=== PATIENT | female | born 1970 | race Caucasian/White ===

== ENCOUNTER 2016-12-29 08:04 | Emergency (ER) | payer BC ==
[2016-12-29 08:27] VITALS: BP 122/63
[2016-12-29] MEDS ORDERED: Ketorolac INJ* 30 MG/ML 1 ML VIAL IM ONE (09:06)
--- NOTE | 2016-12-29 09:16 | UC ---
Back Pain HPI - HPI Summary HPI Summary: sudden right lower back pain yesterday after lifting weights. no pain or radiation down the leg. no numbness or saddle anesthesia. - History of Current Complaint Chief Complaint: UCBackPain Stated Complaint: BACK PAIN Time Seen by Provider: 12/29/16 08:48 Hx Obtained From: Patient, Family/Medical Coding Technician Hx Last Menstrual Period: 12/14/16 Onset/Duration: Sudden Onset, Lasting Hours Timing: Constant Severity Initially: Severe Severity Currently: Severe Back Pain: Is Discrete @ - right lower back upper buttocks. Character: Sharp, Aching, Spasmodic, Stiffness Aggravating: Movement, Lifting, Bending, Walking Alleviating: Rest, Position Associated Signs And Symptoms: Positive: Pain with Weight Bearing. Negative: Swelling, Bruising, Fever, Weakness, Numbness, Tingling, Flank Pain, Bladder Incontinence, Bowel Incontinence - Allergies/Home Medications Allergies/Adverse Reactions: Allergies Allergy/AdvReac Type Severity Reaction Status Date / Time No Known Allergies Allergy Verified 12/29/16 08:27 Home Medications: Home Medications Acetaminophen TAB* [Tylenol TAB*] 650 mg PO Q8H PRN 12/29/16 [History Confirmed 12/29/16] PMH/Surg Hx/FS Hx/Imm Hx Previously Healthy: No - prior shoulder injury. - Surgical History Surgical History: Yes Surgery Procedure, Year, and Place: LT VEIN STRIPPING ON LEG. LT SHOULDER SURGERY - Family History Known Family History: Positive: Other - no related back disease in the family. - Social History Occupation: Employed Full-time Alcohol Use: Occasionally Substance Use Type: None Smoking Status (MU): Never Smoked Tobacco Review of Systems Musculoskeletal: Decreased ROM, Myalgia All Other Systems Reviewed And Are Negative: Yes Physical Exam Triage Information Reviewed: Yes Appearance: Pain Distress - obvious pain with certain movements Vital Signs: Initial Vital Signs Temp 97.3 F 12/29/16 08:22 Pulse 58 12/29/16 08:22 Resp 18 12/29/16 08:22 BP 122/63 12/29/16 08:22 Vital Signs Reviewed: Yes Eyes: Positive: Conjunctiva Clear ENT: Positive: Normal ENT inspection, Hearing grossly normal. Negative: Trismus , Muffled/hoarse voice Neck: Negative: Nuchal Rigidity Respiratory Exam: Normal Cardiovascular Exam: Normal Abdominal Exam: Normal Musculoskeletal Exam: Other - there is no midline or paraspinal muscle tenderness. Neurological Exam: Normal - REflexes anya intact in both lower extremeties and pin prick intact anya. Psychological Exam: Normal Skin Exam: Normal Back Pain Course/Dx - Course Course Of Treatment: sudden pain without radiation. no signs or symptoms of cord compression. this is c/w with strain. PT note provided. flexaril at night and she was warned about sedating properties. - Differential Dx/Diagnosis Differential Diagnosis/HQI/PQRI: Arthritis, Cauda Equina Syndrome, Compressive Cord Syndrome, Epidural Abscess, Fracture, Herniated Disc, Neoplasm, Osteomyelitis, Osteoporosis, Renal Colic, Septic Arthritis, Strain, Sprain Provider Diagnoses: acute low back strain. Discharge - Discharge Plan Condition: Good Disposition: HOME Prescriptions: Cyclobenzaprine TAB* [Flexeril 10 MG TAB*] 10 mg PO BID PRN #10 tab PRN Reason: Pain Naproxen [Naprosyn 500 mg] 500 mg PO BID PRN #20 tab PRN Reason: Pain Patient Education Materials: Low Back Strain (ED), Acute Low Back Pain (ED) Referrals: Sharita Chandra MD [Primary Care Provider] - If Needed Additional Instructions: return for any worsening. PT note has been provided.
== END 2016-12-29 09:40 | disposition home or self-care (01) ==
LOC: UCCORT 08:04
DX: S39.012A Strain of muscle, fascia and tendon of lower back, initial encounter (principal); X50.0XXA Overexertion from strenuous movement or load, initial encounter; Y93.B3 Activity, free weights; Y92.9 Unspecified place or not applicable
CPT/HCPCS: 96372; 99212; G0463; J1885

== ENCOUNTER 2017-04-02 12:04 | Emergency (ER) | payer BC ==
[2017-04-02 13:51] VITALS: BP 120/70
--- NOTE | 2017-04-02 14:00 | UC ---
Throat Pain/Nasal Wes HPI - HPI Summary HPI Summary: coughing, congested for 2 weeks now. tried netipot, nyquil without relief. earaches, congested nasal and chest. has chills but no fever she knows of. - History of Current Complaint Chief Complaint: UCRespiratory Stated Complaint: SINUSES Hx Last Menstrual Period: 02/04/17- pt states nancy-menopause Onset/Duration: Lasting Weeks Severity: Severe Pain Scale Used: 0-10 Numeric - 4/10 Cough: Nonproductive Associated Signs & Symptoms: Positive: Sinus Discomfort, Nasal Discharge - Epiglottits Risk Factors Epiglottis Risk Factors: Negative - Allergies/Home Medications Allergies/Adverse Reactions: Allergies Allergy/AdvReac Type Severity Reaction Status Date / Time No Known Allergies Allergy Verified 04/02/17 13:51 PMH/Surg Hx/FS Hx/Imm Hx Previously Healthy: Yes - Surgical History Surgical History: Yes Surgery Procedure, Year, and Place: LT VEIN STRIPPING ON LEG. LT SHOULDER SURGERY - Family History Known Family History: Positive: Other - no related back disease in the family. - Social History Alcohol Use: Occasionally Substance Use Type: None Smoking Status (MU): Never Smoked Tobacco Review of Systems Constitutional: Chills Eyes: Negative ENT: Sore Throat, Ear Ache, Nasal Discharge, Sinus Congestion, Sinus Pain/ Tenderness Respiratory: Cough Cardiovascular: Negative Gastrointestinal: Negative Genitourinary: Negative Motor: Negative Neurovascular: Negative Musculoskeletal: Negative Neurological: Negative Psychological: Negative Is Patient Immunocompromised?: No All Other Systems Reviewed And Are Negative: Yes Physical Exam Triage Information Reviewed: Yes Appearance: Well-Appearing, No Pain Distress, Well-Nourished Vital Signs: Initial Vital Signs Temp 98 F 04/02/17 13:42 Pulse 70 04/02/17 13:42 Resp 16 04/02/17 13:42 BP 120/70 04/02/17 13:42 Pulse Ox 100 04/02/17 13:42 Vital Signs Reviewed: Yes Eye Exam: Normal Eyes: Positive: Conjunctiva Clear ENT: Positive: Normal ENT inspection, Pharyngeal erythema, Nasal congestion, TM bulging, Hoarse voice Neck exam: Normal Neck: Positive: Supple Respiratory: Positive: Chest non-tender, Lungs clear, Normal breath sounds, No respiratory distress Cardiovascular Exam: Normal Cardiovascular: Positive: RRR, No Murmur Abdominal Exam: Normal Abdomen Description: Positive: Nontender Musculoskeletal Exam: Normal Neurological Exam: Normal Neurological: Positive: Alert Psychological: Positive: Normal Response To Family, Age Appropriate Behavior Throat Pain/Nasal Course/Dx - Course Course Of Treatment: take antibiotic with food to reduce gi upset. increase fluid intake daily to prevent dehydration. take ibuprofen as directed every 4- 6 hours for pain/fever. f/u pcp in 1 week if symptoms not resolving - Differential Dx/Diagnosis Provider Diagnoses: sinusitis Discharge - Discharge Plan Condition: Stable Disposition: HOME Prescriptions: Amoxicillin PO (*) [Amoxicillin 875 MG (*)] 875 mg PO BID 10 Days #20 tab Patient Education Materials: Sinusitis (ED) Referrals: Sharita Chandra MD [Primary Care Provider] - 1 Week
== END 2017-04-02 14:15 | disposition home or self-care (01) ==
LOC: UCCORT 12:04
DX: J32.9 Chronic sinusitis, unspecified (principal)
CPT/HCPCS: 99212; G0463

== ENCOUNTER 2018-04-10 17:44 | Emergency (ER) | payer BC ==
[2018-04-10 18:06] VITALS: BP 133/77
--- NOTE | 2018-04-10 18:30 | ED ---
Throat Pain/Nasal Congestion - HPI Summary HPI Summary: 47 yr old female with three weeks of sinus pressure, post nasal drip, ear pressure, and now coughing a bit. She has not had fever. She has had intermittent pressure that comes and goes in the right ear. She rates her symptoms as moderate. She feels the sinus symptoms are now moving down into her chest and exacerbating cough symptoms. No SOB, no chest pain. - History of Current Complaint Chief Complaint: UCGeneralIllness Time Seen by Provider: 04/10/18 18:18 - Allergies/Home Medications Allergies/Adverse Reactions: Allergies Allergy/AdvReac Type Severity Reaction Status Date / Time No Known Allergies Allergy Verified 04/10/18 18:06 Home Medications: Home Medications Copper (Iud) [Paragard IUD] 1 unit IU DAILY 04/10/18 [History Confirmed 04/10/18 ] PMH/Surg Hx/FS Hx/Imm Hx Cardiovascular History: Denies: Hx Pacemaker/ICD Sensory History: Denies: Hx Hearing Aid Psychiatric History: Denies: Hx Panic Disorder - Surgical History Surgery Procedure, Year, and Place: LT VEIN STRIPPING ON LEG. LT SHOULDER SURGERY Infectious Disease History: No Infectious Disease History: Denies: Traveled Outside the [place] in Last 30 Days - Family History Known Family History: Positive: Other - no related back disease in the family. - Social History Occupation: Employed Full-time Alcohol Use: Occasionally Substance Use Type: Reports: None Smoking Status (MU): Never Smoked Tobacco Review of Systems Constitutional: Negative Positive: Sore Throat, Ear Ache, Nasal Discharge Positive: Cough All Other Systems Reviewed And Are Negative: Yes Physical Exam Triage Information Reviewed: Yes Vital Signs On Initial Exam: Initial Vitals Temp Pulse Resp BP Pulse Ox 97.1 F 77 15 133/77 100 04/10/18 18:03 04/10/18 18:03 04/10/18 18:03 04/10/18 18:03 04/10/18 18:03 Vital Signs Reviewed: Yes Appearance: Positive: Well-Appearing, No Pain Distress Skin: Positive: Warm, Skin Color Reflects Adequate Perfusion Head/Face: Positive: Normal Head/Face Inspection Eyes: Positive: EOMI ENT: Positive: Pharynx normal, Nasal congestion, Nasal drainage, Sinus tenderness. Negative: TM red Neck: Positive: Nontender Respiratory/Lung Sounds: Positive: Clear to Auscultation, Breath Sounds Present Cardiovascular: Positive: RRR. Negative: Murmur Abdomen Description: Positive: Nontender Musculoskeletal: Positive: Strength/ROM Intact Neurological: Positive: Sensory/Motor Intact, Alert, Oriented to Person Place, Time, CN Intact II-III, Normal Gait, Speech Normal Psychiatric: Positive: Normal - Yolanda Coma Scale Best Eye Response: 4 - Spontaneous Best Motor Response: 6 - Obeys Commands Best Verbal Response: 5 - Oriented Coma Scale Total: 15 Diagnostics - Vital Signs Vital Signs Temp Pulse Resp BP Pulse Ox 04/10/18 18:03 97.1 F 77 15 133/77 100 - Laboratory Lab Statement: Any lab studies that have been ordered have been reviewed, and results considered in the medical decision making process. EENT Course/Dx - Course Course Of Treatment: 47 yr old female with sinusitis. Rx cefdinir. DC home. FU with pMD. - Diagnoses Provider Diagnoses: Sinusitis Discharge - Sign-Out/Discharge Documenting (check all that apply): Patient Departure All imaging exams completed and their final reports reviewed: No Studies - Discharge Plan Condition: Good Disposition: HOME Prescriptions: Cefdinir [Cefdinir 300 MG CAP] 300 mg PO BID #20 capsule Patient Education Materials: Sinusitis (ED) Referrals: Sharita Chandra MD [Primary Care Provider] - 4 Days - Billing Disposition and Condition Condition: GOOD Disposition: Home
== END 2018-04-10 18:37 | disposition home or self-care (01) ==
LOC: UCCORT 17:44
DX: J32.9 Chronic sinusitis, unspecified (principal)
CPT/HCPCS: 99212; G0463

== ENCOUNTER 2019-04-17 20:35 | Emergency (ER) | payer BC ==
--- OUTSIDE RECORDS SUMMARY | 2019-04-17 20:41 | XMS REPORT | Continuity of Care Document ---
:1970 External Reference #:[id number] Author Name Sharita Chandra MD Address [address] [place] [id number] Care Team Providers Name Role Phone Nevin Diallo Care Team Information Shipping Specialist [phone] Ana Apodaca - Gastroenterology Care Team Information Shipping Specialist Problems Active Problems Provider Date Vitamin D deficiency Sharita Chandra MD Onset: 10/05/2011 Varicose veins of lower extremity Sharita Chandra MD Onset: 10/02/2010 Raynaud's disease Sharita Chandra MD Onset: 09/02/2006 Migraine with typical aura Sharita Chandra MD Onset: 02/23/2019 Social History Type Date Description Comments Sex Unknown ETOH Use Occasionally consumes alcohol Tobacco Use Start: Unknown Patient has never smoked Recreational Drug Use Denies Drug Use Smoking Status Reviewed: 02/23/19 Patient has never smoked Exercise Type/Frequency Exercises regularly Exercises regularly cross fit, swimming, biking; 01/03/15 counselled 150min per week 10k steps per day Allergies, Adverse Reactions, Alerts Description No Known Drug Allergies Medications Active Medications SIG Qnty Indications Ordering Date Provider Paragard Intrauterine per pt inserted Z01.411 Unknown 03/02/2017 Copper Contraceptive approx 03/2017 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 T380a IUD Immunizations CPT Code Status Date Vaccine Reaction Lot # [id number] Given 01/22/2019 Influenza Vac, Quadrivalent, Split, 0.25mL, [place] Use [address]697 Given 02/03/2018 Tdap (Adacel) Ages 7 And [id number] Above Only 05326 Given 01/23/2018 Influenza Virus Vaccine,Quadrivalent,Split, Preserv Free, 0.5mL,Im [id number] Given 02/11/2015 Fluvirin Immunization 84089 Given 01/03/2014 Afluria Or Fluvirin Flu Vac Intramuscular 88671 Given 02/20/2013 Afluria Or Fluvirin Flu Vac [facility] Intramuscular 46272 Given 03/22/2012 Afluria Or Fluvirin Flu Vac Intramuscular 92440 Given 02/13/2010 Afluria Or Fluvirin Flu Vac DONE AT Intramuscular [facility]/FLUVIRIN 13094 Given 01/23/2009 Afluria Or Fluvirin Flu Vac Intramuscular 62348 Given 09/29/2007 Tdap (Adacel) Ages 7 And Above Only 82453 Given 05/02/1997 Tetanus And Diptheria Toxoid 7 Years And Older Preserv Free 89109 Given 05/02/1997 Hepatitis A Vaccine, Adult Dosage Vital Signs Date Vital Result Comment 02/23/2019 9:58am Weight 161.00 lb Heart Rate 60 /min BP Systolic 120 mmHg BP Diastolic 70 mmHg Respiratory Rate 14 /min Height 64.75 inches 5'4.75" O2 % BldC Oximetry 100 % ra BMI (Body Mass Index) 27.0 kg/m2 02/03/2018 12:06pm Weight 159.00 lb Heart Rate 64 /min BP Systolic 112 mmHg BP Diastolic 74 mmHg Respiratory Rate 14 /min Height 65 inches 5'5" O2 % BldC Oximetry 99 % Ra BMI (Body Mass Index) 26.5 kg/m2 Results Test Date Facility Test Result H/L Range Note Comprehensive Met Panel[facility] 02/16/2019 [place] Sodium 140 mmol/L 135- 146 1, 2 Potassium 4.3 mmol/L 3.5-5.2 Chloride# 103 mmol/L 97-110 3 Carbon Dioxide 29 mmol/L 24-34 Calcium 10.0 mg/dL 8.5-10.5 4 Glucose 101 mg/dL 70-105 BUN 16 mg/dL 6-26 Creatinine 1.0 mg/dL 0.5-1.4 Total Protein 7.0 g/dL 6.0-8.0 Albumin 4.6 g/dL 3.6-4.9 Globulin 2.4 g/dL 2.0-3.5 A/G Ratio 1.9 Ratio 1.0-2.2 Total Bilirubin 0.7 mg/dL 0.1-1.3 Alkaline Phosphatase 45 U/L 24-140 Alt 21 U/L 3-42 Ast 19 U/L 8-42 Anion Gap 8 mmol/L 5-15 5 Female Egfr 67 >60 6 Male Egfr 89 >60 7 Lipid 02/16/2019 [facility] Cholesterol 250 mg/dL High 50-199 Triglycerides 78 mg/dL 30-200 HDL 77 mg/dL 35-85 8 Chol/ HDL Ratio 3.3 ratio Low 3.7-5.6 VLDL 16 mg/dL 2-29 LDL (Calc) 158 mg/dL High 20-99 9 Laboratory test finding 02/16/2019 [facility] Vitamin D 25 Hydroxy 35 ng/mL 30-100 10 1 befrore visit 01/2019 2 Updated reference range on new analyzer 3 Updated reference range on new analyzer 4 Updated reference range 08-30-2018 5 Updated Reference Range 6 Concerning GFR Guidelines for Americans: Normal function or mild renal disease, if clinically at risk: >/= 60 mL/min Moderately decreased: 30-59 Severely decreased: 15-29 Renal failure: <15 There is reduced accuracy above 60ml/min/1.73 m squared, but the numeric value may be clinically useful in the near 60 range 7 Concerning GFR Guidelines: Normal function or mild renal disease, if clinically at risk: >/= 60 mL/min Moderately decreased: 30-59 Severely decreased: 15-29 Renal failure: <15 There is reduced accuracy above 60ml/min/1.73 m squared, but the numeric value may be clinically useful in the near 60 range Glomerular Filtration Rate (GFR) is estimated based on the CKD-EPI equation, which assumes a steady state for creatinine as recommended by the National Kidney Disease Education Program in conjunction with the National Institutes of Health and the National Kidney Foundation. Clinical conditions in which it may be necessary to measure GFR by using clearance methods include extremes of age and body size, severe malnutrition or obesity, diseases of skeletal muscle, paraplegia or quadriplegia, vegetarian diet, rapidly changing kidney function, and calculation of the dose of potentially toxic drugs that are excreted by the kidneys. 8 Per NCEP ATP III Guidelines: Results lower than 40 mg/dL are suggestive of increased risk for coronary artery disease. Results > or = to 60 mg/dL are considered a negative risk factor. 9 Per NCEP ATP III Guidelines: Normal Population <130 Patients with medical conditions: CHD/DM Optimal: <100 Borderline high: 130-159 High: 160-189 Very high: >189 10 Clinical Guidelines for recommended serum 25(OH)Vitamin D Deficient at less than 20 ng/mL Insufficient at 20 to <30 ng/mL Sufficient at 30-100 ng/mL Toxicity at greater than 100 ng/mL Procedures Date Code Description Status 02/13/2018 [id number] Mammogram Completed 12/30/2014 [id number] Mammogram Completed Medical Devices Description No Information Available Encounters Description No Information Available Assessments Date Code Description Provider 02/23/2019 Z01.411 Encounter for gynecological examination Sharita Chandra MD (general) (routine) with abnormal findings 02/23/2019 E78.2 Mixed hyperlipidemia Sharita Chandra MD 02/23/2019 I73.00 Raynaud's syndrome without gangrene Sharita Chandra MD 02/23/2019 E55.9 Vitamin D deficiency, unspecified Sharita Chandra MD 02/23/2019 G43.109 Migraine with aura, not intractable, without Sharita Chandra MD status migrainosus 02/23/2019 I83.813 Varicose veins of bilateral lower extremities Sharita Chandra MD with pain 02/23/2019 Z12.31 Encounter for screening mammogram for Sharita Chandra MD malignant neoplasm of breast 02/23/2019 Z12.11 Encounter for screening for malignant Sharita Chandra MD neoplasm of colon 02/23/2019 Z68.27 Body mass index (BMI) 27.0-27.9, adult Sharita Chandra MD 02/16/2019 E78.2 Mixed hyperlipidemia Sharita Chandra MD 02/16/2019 E78.2 Mixed hyperlipidemia Schedule, Laboratory 02/16/2019 E55.9 Vitamin D deficiency, unspecified Sharita Chandra MD 02/16/2019 E55.9 Vitamin D deficiency, unspecified Schedule, Laboratory 02/16/2019 E78.2 Mixed hyperlipidemia [facility] 02/16/2019 E55.9 Vitamin D deficiency, unspecified [facility] Plan of Treatment Future Appointment(s):02/22/2020 7:45 am - Schedule, Laboratory at [facility]2019 9:30 am - Sharita Chandra MD at [facility]02/23/2019 - Sharita Chandra MDZ01.411 Encounter for gynecological examination (general) (routine) with abnormal findingsComments:Annual communications instructor exam, pt is low risk for cervical cancer, pap 01/03/15 and hpv normal next in 2019 unless areason presents. Annual exam/ physical is still recommended Monitor menses flow, if occur < q 21 days or last > 7 days or has breakthrough bleeding, these changes could be signs of endometrial problems such as polyps, cancer, or other problems. Imms reviewed tdap booster 02/03/18no need for pneumovax. get a flu vax and have them send the report to [facility] annually per her request ROS normal, norisk for colon cancer identified. Healthy Lifestyle Encouraged: Encouraged healthy diet with meats simply prepared, fresh fruits and veg when able also simply prepared , whole grains, 3 dairies per day non fat. Recommend all patients consume a source of omega 3 fatty acids daily, such as almonds/walnuts/ground flax seed/ olive oil/fish like salmon,tuna. Women at risk for ( meaning, anyone sexually active regardless of contraception) should take 400mcg folic acid daily , usually found in a multivit, to reduce the risks for defects. Encouraged daily exercise 30 - 60 min daily/150min per week. Encouraged at least 2-3 qrts total fluid per day with more for sweaty exercise. Target 7-8 hours of sleep at night. Work on your "happy factors" to decrease stress and enjoy life. Limityour alcohol to under 1 per day, no more than 3 in any one day , no more than 7 per week.Avoid tobacco use. An approach to healthy lifestyle will help reduce your risks for acute and chronic illness and you may enjoy life better!IUD strings identified and appears appropriately placed based on exam. Recommended she do monthly string checks to make sure it is not displacing at all.Follow up:next visit 366 days for 30min annual communications instructor exam, pap , iudcheck, nonfasting labs and mammo 5 days wujnmD10.2 Mixed hyperlipidemiaNew Labs:Comprehensive Met Panel-[facility], Scheduled: 02/22/20Lipid, Scheduled: 02/22/20Comments:high cholreviewed AHA/ACC 2018 risk assessment and guidelines, suggests an <5% cardiovascular risk, meaning <5 out of 100 people with your risk factors will have a heart attack or stroke in the next 10 years. This is considered low risk. However, she has family history of father with CAD in 50sRecommend: Low fat ( under 30gm), low chol diet ( under 300mg per day chol)focus on lean meat, nonfat 1% dairy, increased veg and fruit, whole grains consume healthy omega-3 fats with each meal, avoidingtransfats. weight lossexercise build to 150min per week or 10,000 steps per day Since this is considered low risk, no aspirin is recommended at this time. Reviewed signs and symptoms of cardiovasculardisease.recheck periodically to monitor dietary treatment Advised pt to consider doing a CT calcium score, program through [facility], CT scan with risks for radiation exposure and chance to find another abnormality that needs a workup, but benefit of identifying calcium load that would suggest coronary artery disease and potential opportunity for early treatment. Cost is $150 usually not covered by insurance. She declines for nowI73.00 Raynaud's syndrome without gangreneNew Labs:CBC with Auto Diff- [facility], Scheduled: 02/22/20Comments:Raynaud's diseasesxs stableseek care for sxs not controlled, there are meds to help if bpbaywI28.9 Vitamin D deficiency, unspecifiedNew Labs:Vitamin D 25 Hydroxy, Scheduled: 02/22/20Comments:Pt with vit D deficiency on replacement, check levels with next labs. Continue replacement and recheck periodically. Be certain to take your vit d with your main meal that has meat/fat/oil as this is fat soluble. New recommended goals are levels 40 - 85G43.109 Migraine with aura, not intractable, without status migrainosusComments:stable headache frequency, call prn increased ccsdbugbsF02.813 Varicose veins of bilateral lower extremities with painComments :varicose veins--stable, no new concerns. continues support lcfrldwlrB15.31 Encounter for screening mammogram for malignant neoplasm of breastNew Xrays: Mammogram Screening, Bilateral Incl CAD When Performe, Ordered: 02/23/19Comments :Annual mammogram and clinical breast exam with monthly breast self exams discussed. Pt should call/come in if she has any changes in breast self exam or concerns. Advised pt that for those aged 50-74,uspstf recommends mammo every other year , and breast self exam or clinical breast exam need to be decided individually. Amer Cancer society recommends mammo every year age 45 to 55 and then every other year after, and to not do annual clinical breast exams. At risk pts should do annually or as directed by specialist recommendations. Currently I am recommending pts do what they feel they should, and that most in this risk category do an annual mammogram and clinical breast exam. If you want to treat breast cancer,, then do annual screening. Discussed the new recommendations for breast ultrasound for very dense breasts as an additional test for screening. She asks for annual mammogram and clinical breast exam Discussed the discrepancy with the Ty-Cu risk assessment at 29% but per [place] 5yr is 1.3% and lifetime is only 12%. Discussed referral to breast district manager primary care sales, options for US, MRI, more frequent clinical breast exams, etc. She declines for now.Z12.11 Encounter for screening for malignant neoplasm of colonComments:Colon cancer screening discussedRecommend colon cancer screening as it's preventive for colon cancerby removing polyps or small cancers. Recommend either colonoscopy every 10 yr, cologuard stool sample every 3 years (check insurance for coverage) or annual FIT test for blood in the stool. Colonoscopy is the gold standard The idea is to identify cancer early or to identify and remove polyps before they can grow and become cancer. Pt accepts referral for colonoscopyReferral:Ana Apodaca JdurpuyjvfioyenaJ55.27 Body mass index (BMI) 27.0-27.9, adultComments:recommend reduced calorie diet and healthy diet and regular exercise to help with weight loss Functional Status Description No Information Available Mental Status Description No Information Available Referrals Refer to Reason for Referral Status Appt Date Ana Apodaca screening colonoscopy at age 49, end of Jun Faxed Created all necessary paperwork needed for to review and schedule pt. SUPRIYA 02/23 [address] [place] [address] [phone]
[2019-04-17 20:43] VITALS: BP 123/74
--- NOTE | 2019-04-17 21:04 | UC ---
Throat Pain/Nasal Wes HPI - HPI Summary HPI Summary: Pt presents with c/o sudden onset of ST, sinus congestion X2 days. - History of Current Complaint Chief Complaint: UCRespiratory Stated Complaint: SORE THROAT Time Seen by Provider: 04/17/19 20:45 Hx Obtained From: Patient Hx Last Menstrual Period: 12/2017/has IUD ?: No Onset/Duration: Sudden Onset, Lasting Days, Still Present Severity: Moderate Pain Intensity: 8 Cough: None Associated Signs & Symptoms: Positive: Dysphagia, Sinus Discomfort - Epiglottits Risk Factors Epiglottis Risk Factors: Sudden Onset - Allergies/Home Medications Allergies/Adverse Reactions: Allergies Allergy/AdvReac Type Severity Reaction Status Date / Time No Known Allergies Allergy Verified 04/17/19 20:43 Home Medications: Home Medications Ibuprofen 600 mg PO ONCE 04/17/19 [History Confirmed 04/17/19] PMH/Surg Hx/FS Hx/Imm Hx Previously Healthy: Yes - Surgical History Surgical History: Yes Surgery Procedure, Year, and Place: LT VEIN STRIPPING ON LEG. LT SHOULDER SURGERY - Family History Known Family History: Positive: Other - no related back disease in the family. - Social History Occupation: Employed Full-time Lives: With Family Alcohol Use: Occasionally Substance Use Type: None Smoking Status (MU): Never Smoked Tobacco Have You Smoked in the Last Year: No Review of Systems All Other Systems Reviewed And Are Negative: Yes Constitutional: Positive: Negative Skin: Positive: Negative Eyes: Positive: Negative ENT: Positive: Sore Throat, Ear Ache, Sinus Congestion Respiratory: Positive: Negative Cardiovascular: Positive: Negative Gastrointestinal: Positive: Negative Genitourinary: Positive: Negative Motor: Positive: Negative Neurovascular: Positive: Negative Musculoskeletal: Positive: Negative Neurological: Positive: Headache Psychological: Positive: Negative Is Patient Immunocompromised?: No Physical Exam Triage Information Reviewed: Yes Appearance: Well-Appearing Vital Signs: Initial Vital Signs Temp 97.8 F 04/17/19 20:41 Pulse 68 04/17/19 20:41 Resp 18 04/17/19 20:41 BP 123/74 04/17/19 20:41 Pulse Ox 99 04/17/19 20:41 Vital Signs Reviewed: Yes Eye Exam: Normal ENT: Positive: Sinus tenderness - mild Dental Exam: Normal Neck exam: Normal Respiratory Exam: Normal Cardiovascular Exam: Normal Musculoskeletal Exam: Normal Neurological Exam: Normal Psychological Exam: Normal Skin Exam: Normal Throat Pain/Nasal Course/Dx - Differential Dx/Diagnosis Differential Diagnosis/HQI/PQRI: Pharyngitis, Sinusitis Provider Diagnosis: Viral syndrome Discharge ED - Sign-Out/Discharge Documenting (check all that apply): Patient Departure All imaging exams completed and their final reports reviewed: No Studies - Discharge Plan Condition: Stable Disposition: HOME Prescriptions: Guaifenesin/Pseudoephedrne HCl [Mucinex D ER 600-60 mg Tablet] 1 each PO Q12H # 14 tab.er.12h Patient Education Materials: Viral Syndrome (ED) Referrals: Sharita Chandra MD [Primary Care Provider] - If Needed - Billing Disposition and Condition Condition: STABLE Disposition: Home
== END 2019-04-17 21:09 | disposition home or self-care (01) ==
LOC: UCCORT 20:35
DX: B34.9 Viral infection, unspecified (principal); J02.9 Acute pharyngitis, unspecified; R09.81 Nasal congestion; R13.10 Dysphagia, unspecified; H92.09 Otalgia, unspecified ear
CPT/HCPCS: 87651; 99212; G0463